=== PATIENT | male | born 1970 | race Caucasian/White ===

== ENCOUNTER 2020-05-11 06:22 | Inpatient (IN) | payer OTHER ==
[~2020-05-11] VITALS: Ht 172 cm; Wt 95.2 kg
--- OUTSIDE RECORDS SUMMARY | 2020-05-11 06:30 | XMS REPORT | Continuity of Care Document ---
Author Organization Unknown Address Unknown Phone Unavailable Allergies There is no data. Medications There is no data. Problems There is no data. Procedures There is no data. Results There is no data. Encounters ACCT No. Visit Date/Time Discharge Status Pt. Type Provider Facility Loc./Unit Complaint [id number] 05/11/2020 06:26:[address] Emergency HOLLY REA, RUBI Hamilton [facility] ER +GLADYS GERMAN
[2020-05-11] MEDS ORDERED: LACTATED RINGERS 1,000 ML IV ONE (06:41)
[2020-05-11] MEDS ORDERED: KETOROLAC 30 MG/ML VIAL ONE (06:48)
[2020-05-11] MEDS ORDERED: KETOROLAC 30 MG/ML VIAL IVP STA (06:50)
[2020-05-11] MEDS ORDERED: LACTATED RINGERS 1,000 ML IV STA (06:50)
--- NOTE | 2020-05-11 07:30 | Diagnostic Imaging Report ---
CLINICAL INDICATION: Patient with shortness of air and Covid positive. EXAM: Portable chest x-ray upright view. COMPARISONS: None. FINDINGS: Lungs/pleura: There is a subtle area of groundglass airspace consolidation overlying the right upper lung field region. There is curvilinear airspace opacity in right lung bases represent atelectasis, but superimposed infiltrate cannot be completely excluded. There is also minimal curvilinear opacities in left lung base which may represent atelectasis. There is no pneumothorax. There is no pleural effusion. Mediastinum: Unremarkable. Pulmonary vasculature: Unremarkable. Heart: Unremarkable. Bones/extrathoracic soft tissue: Unremarkable. IMPRESSION: 1: There is concern for right upper lung field small groundglass opacification concerning for lung infiltrate. Follow up chest x-ray in 2 - 4 weeks is suggested to evaluate for interval resolution of this finding. 2: There is development of mild right basilar atelectasis and/or infiltrate. 3: There is minimal left basilar atelectasis. Dictated by: Dictated on workstation # [id number]
[2020-05-11 07:32] LABS: BASOPHILS % (AUTO) 0 % (0-10); EOSINOPHILS % (AUTO) 0 % (0-10); HEMATOCRIT 44 % (40-54); HEMOGLOBIN 15.5 G/DL (13.3-17.7); LYMPHOCYTES # (AUTO) 1.4 X 10^3 (1.0-4.0); LYMPHOCYTES % (AUTO) 13 % (12-44); MEAN CORPUSCULAR HEMOGLOBIN 33 PG (25-34); MEAN CORPUSCULAR HGB CONC 35 G/DL (32-36); MEAN CORPUSCULAR VOLUME 96 FL (80-99); MONOCYTES # (AUTO) 1.3 X 10^3 (0.0-1.0); MONOCYTES % (AUTO) 12 % (0-12); NEUTROPHILS # (AUTO) 8.2 X 10^3 (1.8-7.8); NEUTROPHILS % (AUTO) 75 % (42-75); PLATELET COUNT 259 10^3/uL (130-400); RED CELL DISTRIBUTION WIDTH 13.6 % (10.0-14.5); WHITE BLOOD COUNT 10.9 10^3/uL (4.3-11.0)
[2020-05-11 07:42] LABS: ALBUMIN 3.6 GM/DL (3.2-4.5); CHLORIDE 103 MMOL/L (98-107); POTASSIUM 3.2 MMOL/L (3.6-5.0); SODIUM 137 MMOL/L (135-145)
[2020-05-11 07:44] LABS: GLUCOSE 131 MG/DL (70-105)
[2020-05-11 07:45] LABS: FIBRIN DEGRADATION PRODUCTS 0.71 UG/ML (0.00-0.49); INR 1.1 (0.8-1.4); PROTHROMBIN TIME PATIENT 14.1 SEC (12.2-14.7)
[2020-05-11 07:46] LABS: BILIRUBIN,TOTAL 0.6 MG/DL (0.1-1.0); CARBON DIOXIDE 23 MMOL/L (21-32)
[2020-05-11 07:48] LABS: ALKALINE PHOSPHATASE 51 U/L (40-136); CREATININE SERUM 1.17 MG/DL (0.60-1.30); GFR ESTIMATED > 60
[2020-05-11 07:49] LABS: BUN/CREATININE RATIO 10
[2020-05-11 07:51] LABS: ALANINE AMINOTRANSFERASE 54 U/L (0-55)
--- NOTE | 2020-05-11 07:52 | ED General ---
General Chief Complaint: Respiratory Problems Stated Complaint: +COVID,AMS Nursing Triage Note: Pt is known COVID positive (tested positive on 05/02-symptom onset on 05/01). Pt had syncopal episode this AM after getting out of shower. reported pt lost control of bowels. Pt alert and oriented upon arrival to ED. Pt c/o generalized weakness, body aches, and chest tightness. Nursing Sepsis Screen: No Definite Risk Source of Information: Patient Exam Limitations: No Limitations History of Present Illness Date Seen by Provider: May 11, 2020 Time Seen by Provider: 06:40 Initial Comments Here with report of syncopal episode this morning after getting out of a hot shower. Apparently he wasn't feeling well at the time. No injuries. Does have complaint of body aches, weakness, chest tightness and mild shortness of air. He is COVID positive from test that was noted on 05/02. He has been doing okay since that time except he has lost taste and smell and he has continuation of his body aches and now with fever. Does not smoke and has no history of lung disease. Denies nausea or vomiting. Feels a little better now but believes that he is likely dehydrated. States he feels like he can't get a full breath. Has been using Tylenol/acetaminophen as needed for pain last dose at 5 AM this morning. Timing/Duration: 1 Week, Getting Worse Severity: Moderate Associated Systoms: No Cough; Fever/Chills, Loss of Appetite; No Nausea/Vomiting; Shortness of Air, Syncope, Weakness Allergies and Home Medications Allergies Coded Allergies: No Known Drug Allergies (Unverified , 05/11/20) Patient Home Medication List Home Medication List Reviewed: Yes Review of Systems Review of Systems Constitutional: see HPI EENTM: see HPI; No throat pain Respiratory: No cough; short of breath; No wheezing Cardiovascular: see HPI, chest pain (tightness) Gastrointestinal: No abdominal pain, No nausea, No vomiting Genitourinary: no symptoms reported Musculoskeletal: joint pain, muscle pain Skin: no symptoms reported Psychiatric/Neurological: No Symptoms Reported All Other Systems Reviewed Negative Unless Noted: Yes Past Kocdnef-Xdjbkn-Vssabe Hx Past Med/Social Hx: Reviewed Nursing Past Med/Soc Hx Patient Social History Alcohol Use: Denies Use Recreational Drug Use: No Smoking Status: Never a Smoker Recent Foreign Travel: No Contact w/Someone Who Travel: No Recent Infectious Disease Expo: No Recent Hopitalizations: No Seasonal Allergies Seasonal Allergies: No Past Medical History Surgeries: No Respiratory: Yes (COVID positive) Cardiac: No Neurological: No Genitourinary: No Gastrointestinal: No Musculoskeletal: No Endocrine: No HEENT: No Cancer: No Psychosocial: No Integumentary: No Adverse Reaction/Blood Tranf: No Family Medical History Reviewed Nursing Family Hx No Pertinent Family Hx Physical Exam-Suspected Sepsis Physical Exam Vital Signs Vital Signs - First Documented 05/11/20 05/11/20 06:38 06:50 Temp 37.3 Pulse 68 Resp 18 B/P (MAP) 135/85 (102) Pulse Ox 92 O2 Delivery Room Air O2 Flow Rate 2.00 Capillary Refill : Less Than 3 Seconds Blood Pressure Mean: 102 Height, Weight, BMI Height: '" Weight: lbs. oz. kg; 32.00 BMI Method: General Appearance: No Apparent Distress, WD/WN HEENT: PERRL/EOMI, TMs Normal, Pharynx Normal Neck: Non Tender, Supple Respiratory: No Respiratory Distress, Crackles (bilateral lateral aspects mid and lower lung) Cardiovascular: Regular Rate, Rhythm, No Murmur Gastrointestinal: Non Tender, Soft Back: Normal Inspection, No Vertebral Tenderness Extremity: Normal Range of Motion, Non Tender Neurologic/Psychiatric: Alert, Oriented x3 Skin: normal color, warm/dry Focused Exam Lactate Level 05/11/20 06:53: Lactic Acid Level 1.34 Lactic Acid Level Laboratory Tests Test 05/11/20 06:53 Lactic Acid Level 1.34 MMOL/L (0.50-2.00) Progress/Results/Core Measures Suspected Sepsis Recent Fever Within 48 Hours: No Infection Criteria Present: Documented Infection New/Unexplained Altered Menta: No Sepsis Screen: No Definite Risk SIRS Temperature: Pulse: 68 Respiratory Rate: 18 Laboratory Tests 05/11/20 06:55: White Blood Count 10.9 Blood Pressure 135 /85 Mean: 102 05/11/20 06:53: Lactic Acid Level 1.34 Laboratory Tests 05/11/20 06:55: INR Comment 1.1, Platelet Count 259 Results/Orders Lab Results Laboratory Tests Test 05/11/20 06:53 05/11/20 06:55 Range/Units Lactic Acid Level 1.34 0.50-2.00 MMOL/L White Blood Count 10.9 4.3-11.0 10^3/uL Red Blood Count 4.64 4.35-5.85 10^6/uL Hemoglobin 15.5 13.3-17.7 G/DL Hematocrit 44 40-54 % Mean Corpuscular Volume 96 80-99 FL Mean Corpuscular Hemoglobin 33 25-34 PG Mean Corpuscular Hemoglobin Concent 35 32-36 G/DL Red Cell Distribution Width 13.6 10.0-14.5 % Platelet Count 259 130-400 10^3/uL Mean Platelet Volume 10.0 7.4-10.4 FL Neutrophils (%) (Auto) 75 42-75 % Lymphocytes (%) (Auto) 13 12-44 % Monocytes (%) (Auto) 12 0-12 % Eosinophils (%) (Auto) 0 0-10 % Basophils (%) (Auto) 0 0-10 % Neutrophils # (Auto) 8.2 H 1.8-7.8 X 10^3 Lymphocytes # (Auto) 1.4 1.0-4.0 X 10^3 Monocytes # (Auto) 1.3 H 0.0-1.0 X 10^3 Eosinophils # (Auto) 0.0 0.0-0.3 10^3/uL Basophils # (Auto) 0.0 0.0-0.1 10^3/uL Prothrombin Time 14.1 12.2-14.7 SEC INR Comment 1.1 0.8-1.4 Activated Partial Thromboplast Time 31 24-35 SEC D-Dimer 0.71 H 0.00-0.49 UG/ML Sodium Level 137 135-145 MMOL/L Potassium Level 3.2 L 3.6-5.0 MMOL/L Chloride Level 103 98-107 MMOL/L Glucose Level 131 H 70-105 MG/DL Calcium Level 8.0 L 8.5-10.1 MG/DL Corrected Calcium 8.3 L 8.5-10.1 MG/DL Total Protein 6.0 L 6.4-8.2 GM/DL Albumin 3.6 3.2-4.5 GM/DL My Orders Orders - RUBI BARRERA MD Lactated Ringers (Lr 1000 Ml Iv Solution (05/11/20 06:41) Ketorolac Injection (Toradol Injection) (05/11/20 06:48) Cbc With Automated Diff (05/11/20 06:50) Comprehensive Metabolic Panel (05/11/20 06:50) Blood Culture (05/11/20 06:50) Sputum Culture (05/11/20 06:50) Urinalysis (05/11/20 06:50) Urine Culture (05/11/20 06:50) Protime With Inr (05/11/20 06:50) Partial Thromboplastin Time (05/11/20 06:50) Chest 1 View, Ap/Pa Only (05/11/20 06:50) Ed Iv/Invasive Line Start (05/11/20 06:50) Vital Signs Adult Sepsis Patie Q15M (05/11/20 06:50) O2 (05/11/20 06:50) Remove Rings In Anticipation O (05/11/20 06:50) Lactic Acid Analyzer (05/11/20 06:50) Fibrin Degradation Products (05/11/20 06:50) Procalcitonin (Pct) (05/11/20 06:50) Hs C Reactive Protein (05/11/20 06:50) Covid-19 External Lab Results (05/11/20 06:50) Lactated Ringers (Lr 1000 Ml Iv Solution (05/11/20 06:50) Ketorolac Injection (Toradol Injection) (05/11/20 06:50) Vital Signs/I&O 05/11/20 05/11/20 06:38 06:50 Temp 37.3 Pulse 68 Resp 18 B/P (MAP) 135/85 (102) Pulse Ox 92 92 O2 Delivery Room Air Nasal Cannula O2 Flow Rate 2.00 Capillary Refill : Less Than 3 Seconds Blood Pressure Mean: 102 Progress Note : Progress Note Seen and evaluated. Patient is COVID 19 positive and I believe he is having the sequela related to that including likely lung infiltrates from the viral disease due to his shortness of breath and physical exam findings. O2 saturations 90-93% on room air and only improved to 94% with deep breathing. He is not a smoker and not wear oxygen. We will go ahead and get IV, labs, chest x-ray, blood cultures and lactic acid. LR 1 L bolus, Toradol 30 mg IV. O2 at 2 L via nasal cannula initiated. Monitor patient. Anticipate admission. 0800: I discussed the case with Dr. Chaudhry given the x-ray findings. Both agree that is indicated. Patient will be admitted inpatient status. Findings all related to COVID-19 currently. No indication of sepsis currently. Findings and concerns discussed with the daphney ent who agrees with the plan. Doing better on oxygen currently and feeling a little better after meds and fluids. Diagnostic Imaging Diagonstic Imaging: Xray Plain Films/CT/US/NM/MRI: chest Comments [facility] [place] NAME: DAI PHAN [facility] REC#: [id number] PT STATUS: REG ER : 1970 PHYSICIAN: RUBI BARRERA MD ADMIT DATE: 05/11/20/ER Draft Date of Exam:05/11/20 CHEST 1 VIEW, AP/PA ONLY CLINICAL INDICATION: Patient with shortness of air and Covid positive. EXAM: Portable chest x-ray upright view. COMPARISONS: None. FINDINGS: Lungs/pleura: There is a subtle area of groundglass airspace consolidation overlying the right upper lung field region. There is curvilinear airspace opacity in right lung bases represent atelectasis, but superimposed infiltrate cannot be completely excluded. There is also minimal curvilinear opacities in left lung base which may represent atelectasis. There is no pneumothorax. There is no pleural effusion. Mediastinum: Unremarkable. Pulmonary vasculature: Unremarkable. Heart: Unremarkable. Bones/extrathoracic soft tissue: Unremarkable. IMPRESSION: 1: There is concern for right upper lung field small groundglass opacification concerning for lung infiltrate. Follow up chest x-ray in 2 - 4 weeks is suggested to evaluate for interval resolution of this finding. 2: There is development of mild right basilar atelectasis and/or infiltrate. 3: There is minimal left basilar atelectasis. Dictated on workstation # [id number] Dict: 05/11/20719 Trans: 05/11/20728 [id number] Interpreted by: ANGE DALTON MD Electronically signed by: Reviewed: Reviewed by Me Departure Communication (Admissions) Time/Spoke to Admitting Phy: 08:00 Impression Primary Impression: Coronavirus infection Additional Impression: Bilateral pneumonia Qualified Codes: J18.9 - Pneumonia, unspecified organism Disposition: ADMITTED INPATIENT Condition: Stable Admissions Decision to Admit Reason: Admit from ER (General) Decision to Admit/Date: May 11, 2020 Time/Decision to Admit Time: 08:00 RUBI BARRERA MD May 11, 2020 07:51
--- OUTSIDE RECORDS SUMMARY | 2020-05-11 08:30 | XMS REPORT | Continuity of Care Document ---
Author Organization Unknown Address Unknown Phone Unavailable Allergies Active Description Code Type Severity Reaction Onset Reported/Identified Relationship to Patient Clinical Status Yes No Known Drug Allergies [id number] Drug Allergy Unknown N/A 05/11/2020 Medications There is no data. Problems There is no data. Procedures There is no data. Results Test Result Range Blood lactic acid measurement (moles/vol ume) - 05/11/20 06:53 Blood lactic acid measurement (moles/volume) 1.34 mmol/L 0.50-2.00 Complete blood count (CBC) with automate d white blood cell (WBC) differential - 05/11/20 06:55 Blood leukocytes automated count (number/volume) 10.9 10*3/uL 4.3-11.0 Blood erythrocytes automated count (number/volume) 4.64 10*6/uL 4.35-5.85 Venous blood hemoglobin measurement (mass/volume) 15.5 g/dL 13.3-17.7 Blood hematocrit (volume fraction) 44 % 40-54 Automated erythrocyte mean corpuscular volume 96 [ foz_us] 80-99 Automated erythrocyte mean corpuscular h emoglobin (mass per erythrocyte) 33 pg 25-34 Automated erythrocyte mean corpuscular h emoglobin concentration measurement (mass/volume) 35 g/dL 32-36 Automated erythrocyte distribution width ratio 13. 6 % 10.0- 14.5 Automated blood platelet count (count/volume) 259 10*3/uL 130-400 Automated blood platelet mean volume measurement 10.0 [foz_us] 7.4-10.4 Automated blood neutrophils/100 leukocytes 75 % 42-75 Automated blood lymphocytes/100 leukocytes 13 % 12-44 Blood monocytes/100 leukocytes 12 % 0-12 Automated blood eosinophils/100 leukocytes 0 % 0-10 Automated blood basophils/100 leukocytes 0 % 0-10 Blood neutrophils automated count (number/volume) 8.2 10*3 1.8-7.8 Blood lymphocytes automated count (number/volume) 1.4 10*3 1.0-4.0 Blood monocytes automated count (number/volume) 1. 3 10*3 0.0-1.0 Automated eosinophil count 0.0 10*3/uL 0 .0-0.3 Automated blood basophil count (count/volume) 0.0 10*3/uL 0.0-0.1 Comprehensive metabolic panel - 05/11/20 06:55 Serum or plasma sodium measurement (moles/volume) 137 mmol/L 135-145 Serum or plasma potassium measurement (moles/volume) 3.2 mmol/L 3.6-5.0 Serum or plasma chloride measurement (moles/volume) 103 mmol/L 98-107 Carbon dioxide 23 mmol/L 21-32 Serum or plasma anion gap determination (moles/volume) 11 mmol/L 5-14 Serum or plasma urea nitrogen measurement (mass/volume ) 12 mg/dL 7-18 Serum or plasma creatinine measurement (mass/volume) 1.17 mg/dL 0.60-1.30 Serum or plasma urea nitrogen/creatinine mass ratio 10 NRG Serum or plasma creatinine measurement w ith calculation of estimated glomerular filtration rate > NRG Serum or plasma glucose measurement (mass/volume) 131 mg/dL 70-105 Serum or plasma calcium measurement (mass/volume) 8.0 mg/dL 8.5-10.1 Serum or plasma total bilirubin measurement (mass/volu me) 0.6 mg/dL 0.1-1.0 Serum or plasma alkaline phosphatase ammy surement (enzymatic activity/volume) 51 U/L 40-136 Serum or plasma aspartate aminotransfera se measurement (enzymatic activity/volume) 18 U/L 5-34 Serum or plasma alanine aminotransferase measurement (enzymatic activity/volume) 54 U/L 0-55 Serum or plasma protein measurement (mass/volume) 6.0 g/dL 6.4-8.2 Serum or plasma albumin measurement (mass/volume) 3.6 g/dL 3.2-4.5 CALCIUM CORRECTED 8.3 mg/dL 8.5-10.1 PT panel in platelet poor plasma by coag ulation assay - 05/11/20 06:55 Prothrombin time (PT) in platelet poor plasma by coagu lation assay 14.1 s 12.2-14.7 INR in platelet poor plasma or blood by coagulation as say 1.1 0.8-1.4 Activated partial thromboplastin time (a PTT) in platelet poor plasma bycoagulation assay - 05/11/20 06:55 Activated partial thromboplastin time (a PTT) in platelet poor plasma bycoagulation assay 31 s 24-35 Fibrin D-dimer FEU measurement in platel et poor plasma (mass/volume) - 05/11/20 06:55 Fibrin D-dimer FEU measurement in platelet poor plasma (mass/volume) 0.71 ug/mL 0.00-0.49 PROCALCITONIN (PCT) - 05/11/20 06:55 PROCALCITONIN (PCT) 0.13 ng/mL <0.10 Serum or plasma C reactive protein measu rement (mass/volume) - 05/11/20 06:55 Serum or plasma C reactive protein measurement (mass/v olume) 5.47 mg/dL 0.00-0.50 Encounters ACCT No. Visit Date/Time Discharge Status Pt. Type Provider Facility Loc./Unit Complaint [id number] 05/11/2020 08:20:[address] Inpatient FACUNDO REA, BALTAZAR Isaac [facility] 4TH +COVID;PNEUMONIA BILAT
[2020-05-11 09:30] VITALS: BP 135/85
[2020-05-11 09:37] VITALS: BP 128/79
[2020-05-11 09:49] VITALS: BP 128/79
--- NOTE | 2020-05-11 10:00 | NUR ---
DAI PHAN admitted to room 431-1, with an admitting diagnosis of sob, on 05/11/20 from ED via wheel chair, accompanied by staff .DAI PHAN introduced to surroundings, call light, bed controls, phone, TV, temperature control, lights, meal times, smoking policy, visitor policy, side rail policy, bathrooms and showers. Patient Rights given to patient in the handbook. DAI PHAN verbalizes understanding that [facility] is not responsible for the loss or damage to any personal effects or valuables that are kept in the patients posession during their hospitalization. The following Patient Care Plans and discharge were discussed with the patient. DAI PHAN verbalizes understanding of Interdisciplinary Patient Education. Patient informed about the Rapid Response Team and its purpose.
[2020-05-11] MEDS ORDERED: ONDANSETRON 4 MG/2 ML (SDV) Z0FRAN IV PRN ×2 (10:15→12:45)
[2020-05-11] MEDS ORDERED: ACETAMINOPHEN 500 MG TAB (TYLENOL) PO PRN (10:15)
[2020-05-11] MEDS ORDERED: NS IV 1000 ML 1,000 ML ONE (10:24)
[2020-05-11] MEDS: LACTATED RINGERS 1,000 ML IV SCH ×2 (10:33→20:51)
[2020-05-11] MEDS: LOSARTAN 50 MG (COZAAR) TAB PO SCH (10:35)
--- NOTE | 2020-05-11 12:37 | History & Physical-Hospitalist ---
History of Present Illness HPI/Chief Complaint Andrés Houston is a 49-year-old male who presented following a syncopal episode. He was diagnosed with COVID-19 on 05/02. He has been isolating at home since that time. He reports that he has been eating well but possibly not drinking as much physician. He reports that after her shower this morning he ended up on the floor. He is unsure how he fell. He just remembers waking up on the floor. He denies any fevers or chills. He denies any shortness of breath or cough. He reports when he was diagnosed his only symptom was chest tightness. He denies any chest pain. He denies any nausea or vomiting. Denies any abdominal pain. Has no other complaints or concerns. Source: patient Exam Limitations: no limitations Date Seen 05/11/20 Time Seen by a Provider: 10:10 Attending Physician Tiny Loredo MD PCP Unknown Referring Physician Date of Admission May 11, 2020 at 08:20 Home Medications & Allergies Home Medications Reviewed patient Home Medication Reconciliation performed by pharmacy medication reconciliations watch repair technician and/or nursing. Patients Allergies have been reviewed. Allergies Allergies Coded Allergies No Known Drug Allergies (Unverified05/11/20) Past Qpwnwbe-Hipiho-Pmawvg Hx Past Med/Social Hx: Reviewed Nursing Past Med/Soc Hx Patient Social History Alcohol Use: Denies Use Recreational Drug Use: No Smoking Status: Never a Smoker Physical Abuse Screen: No Sexual Abuse: No Recent Foreign Travel: No Contact w/other who traveled: No Recent Hopitalizations: No Recent Infectious Disease Expo: No Immunizations Up To Date Pediatric: No Seasonal Allergies Seasonal Allergies: Yes Past Medical History Currently Using CPAP: No Currently Using BIPAP: No Genitourinary: Kidney Stones Are Your Blood Sugars Over 250: No History of Blood Disorders: No Adverse Reaction to Blood Albarado: No Family History Reviewed Nursing Family Hx Diabetes mellitus 19 FATHER Hypercholesterolemia 19 FATHER Hypertension 19 FATHER 19 MOTHER No Pertinent Family Hx Review of Systems Constitutional: dizziness EENTM: no symptoms reported Respiratory: no symptoms reported Cardiovascular: no symptoms reported Gastrointestinal: no symptoms reported Genitourinary: no symptoms reported Musculoskeletal: no symptoms reported Skin: no symptoms reported Psychiatric/Neurological: No Symptoms Reported Physical Exam Physical Exam Vital Signs Vital Signs - First Documented 05/11/20 05/11/20 05/11/20 06:38 06:50 09:30 Temp 37.3 Pulse 68 Resp 18 B/P (MAP) 135/85 (102) Pulse Ox 92 O2 Delivery Room Air O2 Flow Rate 2.00 FiO2 21 Capillary Refill : Less Than 3 Seconds Height, Weight, BMI Height: '" Weight: lbs. oz. kg; 32.17 BMI Method: General Appearance: No Apparent Distress, WD/WN HEENT: PERRL/EOMI, Pharynx Normal Neck: Normal Inspection, Supple Respiratory: Lungs Clear, Normal Breath Sounds, No Respiratory Distress Cardiovascular: Regular Rate, Rhythm, No Edema, No Murmur Gastrointestinal: Normal Bowel Sounds, Non Tender, Soft Extremity: Normal Inspection, Non Tender, No Pedal Edema Neurologic/Psychiatric: Alert, Oriented x3, No Motor/Sensory Deficits, Normal Mood/Affect Skin: Normal Color, Warm/Dry Results Results/Procedures Labs Laboratory Tests 05/11/20 06:55 Patient resulted labs reviewed. Imaging: Reviewed Imaging Report Assessment/Plan Admission Diagnosis Syncope Admission Status: Inpatient Order (span 2 midnights) Reason for Inpatient Admission: COVID-19 Assessment and Plan Syncope Dehydration COVID-19 Acute respiratory failure with hypoxia Likely due to orthostatic hypotension Clinically appears dehydrated Creatinine 1.17, unknown baseline Received fluid bolus in the emergency room Continue maintenance fluids Chest x-ray with bilateral infiltrates Procalcitonin 0.13, antibiotics discouraged Obtain water mangle tender on telemetry Oxygen supplementation as needed Essential hypertension Continue losartan DVT prophylaxis: Lovenox Diagnosis/Problems Diagnosis/Problems (1) COVID-19 Status: Acute (2) Acute respiratory failure with hypoxia Status: Acute (3) Syncope Status: Acute (4) Bilateral pneumonia Status: Acute Qualifiers: Pneumonia type: due to unspecified organism Lung location: unspecified part of lung Qualified Codes: J18.9 - Pneumonia, unspecified organism TINY LOREDO MD May 11, 2020 12:37
[2020-05-11] MEDS ORDERED: ENOXAPARIN 40 MG/0.4 ML (LOVENOX) SYR SC SCH (12:45)
[2020-05-11] MEDS ORDERED: diphenhydrAMINE 25 MG TAB (BENADRYL) PO PRN (12:45)
[2020-05-11] MEDS ORDERED: ONDANSETRON 4 MG (ZOFRAN) ORAL DISSOLVE TAB PO PRN (12:45)
[2020-05-11] MEDS ORDERED: ANTACID SUSP 30 ML UDC (MYLANTA) PO PRN (12:45)
[2020-05-11] MEDS ORDERED: MELATONIN 3 MG TABLET PO PRN (12:45)
[2020-05-11] MEDS ORDERED: polyethylene glycoL POWDER 17 GM (MIRALAX) PACK PO PRN (12:45)
[2020-05-11] MEDS ORDERED: BISACODYL 10 MG SUPP (DULCOLAX) PR PRN (12:45)
[2020-05-11] MEDS: RT-ALBUTEROL INHALER HFA (VENTOLIN HFA) 18 GM IH SCH (14:08)
[2020-05-11 16:40] VITALS: BP 175/90
[2020-05-11] MEDS: ACETAMINOPHEN 325 MG TABLET PO PRN ×2 (17:38→21:00)
[2020-05-11] MEDS: RT-ALBUTEROL INHALER HFA (VENTOLIN HFA) 18 GM IH PRN (20:24)
[2020-05-11] MEDS: DOCUSATE SODIUM 100 MG (COLACE) CAP PO SCH (20:51)
[2020-05-11] MEDS: SENNOSIDES 8.6 MG (SENOKOT) TAB PO SCH (20:51)
[2020-05-11 20:52] VITALS: BP 130/65
[2020-05-12 00:09] VITALS: BP 129/69
[2020-05-12] MEDS: RT-ALBUTEROL INHALER HFA (VENTOLIN HFA) 18 GM IH PRN ×2 (02:33→08:05)
[2020-05-12 04:57] VITALS: BP 151/79
[2020-05-12] MEDS: LACTATED RINGERS 1,000 ML IV SCH (05:01)
[2020-05-12] MEDS: ACETAMINOPHEN 325 MG TABLET PO PRN (05:01)
[2020-05-12 05:52] LABS: BASOPHILS % (AUTO) 0 % (0-10); EOSINOPHILS % (AUTO) 1 % (0-10); HEMATOCRIT 40 % (40-54); HEMOGLOBIN 13.9 G/DL (13.3-17.7); LYMPHOCYTES # (AUTO) 1.4 X 10^3 (1.0-4.0); LYMPHOCYTES % (AUTO) 17 % (12-44); MEAN CORPUSCULAR HEMOGLOBIN 34 PG (25-34); MEAN CORPUSCULAR HGB CONC 35 G/DL (32-36); MEAN CORPUSCULAR VOLUME 97 FL (80-99); MEAN PLATELET VOLUME 10.3 FL (7.4-10.4); MONOCYTES # (AUTO) 1.1 X 10^3 (0.0-1.0); MONOCYTES % (AUTO) 13 % (0-12); NEUTROPHILS # (AUTO) 5.9 X 10^3 (1.8-7.8); NEUTROPHILS % (AUTO) 70 % (42-75); PLATELET COUNT 227 10^3/uL (130-400); RED CELL DISTRIBUTION WIDTH 13.3 % (10.0-14.5); WHITE BLOOD COUNT 8.4 10^3/uL (4.3-11.0)
[2020-05-12 05:57] LABS: ALBUMIN 3.3 GM/DL (3.2-4.5); CHLORIDE 102 MMOL/L (98-107); POTASSIUM 3.8 MMOL/L (3.6-5.0); SODIUM 134 MMOL/L (135-145)
[2020-05-12 05:58] LABS: CALCIUM 8.1 MG/DL (8.5-10.1)
[2020-05-12 05:59] LABS: GLUCOSE 94 MG/DL (70-105); TOTAL PROTEIN 5.6 GM/DL (6.4-8.2)
[2020-05-12 06:00] LABS: CARBON DIOXIDE 23 MMOL/L (21-32)
[2020-05-12 06:01] LABS: BILIRUBIN,TOTAL 0.6 MG/DL (0.1-1.0)
[2020-05-12 06:03] LABS: ALKALINE PHOSPHATASE 41 U/L (40-136); CREATININE SERUM 0.99 MG/DL (0.60-1.30); GFR ESTIMATED > 60
[2020-05-12 06:04] LABS: BUN/CREATININE RATIO 12
[2020-05-12 06:06] LABS: ALANINE AMINOTRANSFERASE 48 U/L (0-55)
[2020-05-12 08:00] VITALS: BP 142/80
[2020-05-12] MEDS: RT-ALBUTEROL INHALER HFA (VENTOLIN HFA) 18 GM IH SCH (08:05)
[2020-05-12] MEDS: LOSARTAN 50 MG (COZAAR) TAB PO SCH (08:54)
[2020-05-12] MEDS: SENNOSIDES 8.6 MG (SENOKOT) TAB PO SCH (08:54)
[2020-05-12] MEDS: DOCUSATE SODIUM 100 MG (COLACE) CAP PO SCH (08:54)
[2020-05-12 08:55] VITALS: BP 142/80
--- NOTE | 2020-05-12 13:27 | Discharge Summary ---
Discharge Summary Hospital Course Was the Problem List Reviewed?: Yes Problems/Dx: (1) COVID-19 Status: Acute (2) Acute respiratory failure with hypoxia Status: Resolved (3) Syncope Status: Resolved (4) Bilateral pneumonia Status: Acute Qualifiers: Qualified Codes: J18.9 - Pneumonia, unspecified organism Hospital Course Date of Admission: May 11, 2020 at 08:20 Admission Diagnosis : Acute respiratory failure with hypoxia due to COVID-19 Family Physician/Provider: Date of Discharge: 05/12/20 Discharge Diagnosis: Acute respiratory failure with hypoxia due to COVID-19 Hospital Course: Andrés Houston is a 49-year-old male who was admitted with acute hypoxic respiratory failure due to COVID-19. He tested positive as an outpatient on 05/02 after his symptoms began on 05/01. After admission, he was initially requiring a small amount of supplemental oxygen. He was quickly titrated off of this. He underwent a home oxygen study but his saturations remained above 95 percent on room air. He had a syncopal episode at home which was thought to be due to dehydration. He was given IV fluids and responded well. He did have a fever on the morning of 05/12 and so he was recommended to continue isolation at home for coronavirus. He should follow-up with his primary care physician in 1- 2 weeks. The health department should be in contact with him regarding when he can come out of isolation. Labs and Pending Lab Test: Laboratory Tests 05/12/20 05:08: White Blood Count 8.4, Red Blood Count 4.12L, Hemoglobin 13.9, Hematocrit 40, Mean Corpuscular Volume 97, Mean Corpuscular Hemoglobin 34, Mean Corpuscular Hemoglobin Concent 35, Red Cell Distribution Width 13.3, Platelet Count 227, Mean Platelet Volume 10.3, Neutrophils (%) (Auto) 70, Lymphocytes (%) (Auto) 17, Monocytes (%) (Auto) 13H, Eosinophils (%) (Auto) 1, Basophils (%) (Auto) 0, Neutrophils # (Auto) 5.9, Lymphocytes # (Auto) 1.4, Monocytes # (Auto) 1.1H, Eosinophils # (Auto) 0.0, Basophils # (Auto) 0.0, Sodium Level 134L, Potassium Level 3.8, Chloride Level 102, Carbon Dioxide Level 23, Anion Gap 9, Blood Urea Nitrogen 12, Creatinine 0.99, Estimat Glomerular Filtration Rate > 60, BUN/Creatinine Ratio 12, Glucose Level 94, Calcium Level 8.1L, Corrected Calcium 8.7, Total Bilirubin 0.6, Aspartate Amino Transf (AST/SGOT) 22, Alanine Aminotransferase (ALT/SGPT) 48, Alkaline Phosphatase 41, Total Protein 5.6L, Albumin 3.3 Home Meds Active No Active Prescriptions or Reported Medications Assessment/Pt Instructions Medications as prescribed. Follow up the primary care physician in about 1-2 weeks. Discharge Planning: <30 minutes discharge planning Discharge Instructions Discharge Diet: No Restrictions Activity as Tolerated: Yes Pneumonia Vaccine Order Indica: Yes Discharge Physical Examination Vital Signs Vital Signs Date Time Temp Pulse Resp B/P (MAP) Pulse Ox O2 Delivery O2 Flow Rate FiO2 05/12/20 08:55 142/80 (100) 05/12/20 08:05 Room Air 05/12/20 08:00 36.9 69 20 96 05/11/20 14:08 2.00 05/11/20 09:30 21 General Appearance: No Apparent Distress, WD/WN HEENT: PERRL/EOMI, Pharynx Normal Respiratory: Lungs Clear, Normal Breath Sounds, No Respiratory Distress Cardiovascular: Regular Rate, Rhythm, No Edema, No Murmur Gastrointestinal: Normal Bowel Sounds, Non Tender, Soft Extremity: Normal Inspection, Non Tender, No Pedal Edema Skin: Normal Color, Warm/Dry Neurologic/Psychiatric: Alert, Oriented x3, No Motor/Sensory Deficits, Normal Mood/Affect Allergies: Coded Allergies: No Known Drug Allergies (Unverified , 05/11/20) Copy Copies To 1: AYSE OZUNA DO Discharge Summary Date of Admission May 11, 2020 at 08:20 Date of Discharge Discharge Date: May 12, 2020 Discharge Time: 10:45 Admission Diagnosis Acute hypoxic respiratory failure due to COVID-19 Discharge Diagnosis Syncope Dehydration COVID-19 Acute respiratory failure with hypoxia (1) COVID-19 Status: Acute (2) Acute respiratory failure with hypoxia Status: Resolved (3) Syncope Status: Resolved (4) Bilateral pneumonia Status: Acute Qualifiers: Qualified Codes: J18.9 - Pneumonia, unspecified organism Clinical Quality Measures DVT/VTE Risk/Contraindication: Risk Factor Score Per Nursin RFS Level Per Nursing on Admit: 2=Moderate BALTAZAR LOREDO MD May 12, 2020 13:26
== END 2020-05-12 13:00 | disposition home or self-care (01) | DRG 177 ==
LOC: EDUNIT# 06:22 → ER 06:26 → 4TH 08:20
PROVIDERS: ADMIT Internal Medicine; ATTEND Internal Medicine
DX: U07.1 COVID-19 (principal); J12.89 Other viral pneumonia; J96.01 Acute respiratory failure with hypoxia; E86.0 Dehydration; I95.1 Orthostatic hypotension
CPT/HCPCS: 36415; 71045; 80053; 83605; 84145; 85025; 85379; 85610; 85730; 86141; 87040; 94640; 94760; 96374

== ENCOUNTER 2021-06-10 20:52 | Emergency (ER) | payer OTHER ==
[2021-06-10] MEDS ORDERED: KETOROLAC 30 MG/ML VIAL IVP ONE (21:30)
[2021-06-10] MEDS ORDERED: ONDANSETRON 4 MG/2 ML (SDV) Z0FRAN IVP ONE (21:30)
[2021-06-10] MEDS ORDERED: LACTATED RINGERS 1,000 ML IV SCH (21:30)
--- NOTE | 2021-06-10 21:44 | ED Abdominal Pain ---
General Chief Complaint: Abdominal/GI Problems Stated Complaint: STOMACH PAIN, SIDE PAIN Source of Information: Patient Exam Limitations: No Limitations History of Present Illness Date Seen by Provider: Jun 10, 2021 Time Seen by Provider: 21:42 Initial Comments To ER with c/o right flank pain sudden onset 4 hours ago today. Hx kidney stones and this is typical for his stone presentation and he thinks he has another. Just started vomiting in waiting room. No fevers or chills. Timing/Duration: 1-2 Days Severity/Quality: Moderate Location: Generalized Abdomen Radiation: No Radiation Activities at Onset: None Associated Symptoms: Nausea/Vomiting Allergies and Home Medications Allergies Coded Allergies: No Known Drug Allergies (Unverified , 05/11/20) Home Medications No Active Prescriptions or Reported Meds Patient Home Medication List Home Medication List Reviewed: Yes Review of Systems Review of Systems Constitutional: see HPI EENTM: No Symptoms Reported Respiratory: No Symptoms Reported Cardiovascular: No Symptoms Reported Gastrointestinal: See HPI, Abdominal Pain Genitourinary: No Symptoms Reported Musculoskeletal: no symptoms reported Skin: no symptoms reported Psychiatric/Neurological: No Symptoms Reported Endocrine: No Symptoms Reported Hematologic/Lymphatic: No Symptoms Reported Past Gjfhury-Qqmkzp-Pmkvdd Hx Immunizations Up To Date PED Vaccines UTD: No Seasonal Allergies Seasonal Allergies: Yes Past Medical History Surgeries: Yes Respiratory: Yes (COVID positive) Pneumonia Currently Using CPAP: No Currently Using BIPAP: No Cardiac: No Neurological: Yes Genitourinary: Yes Kidney Stones Gastrointestinal: No Musculoskeletal: No Endocrine: No HEENT: No Cancer: No Psychosocial: No Integumentary: No Blood Disorders: No Adverse Reaction/Blood Tranf: No Family Medical History Diabetes mellitus 19 FATHER Hypercholesterolemia 19 FATHER Hypertension 19 FATHER 19 MOTHER No Pertinent Family Hx Physical Exam Vital Signs Vital Signs - First Documented 06/10/21 21:32 Temp 36.5 Pulse 77 Resp 16 B/P (MAP) 174/93 (120) Pulse Ox 96 O2 Delivery Room Air Capillary Refill : Height/Weight/BMI Height: '" Weight: lbs. oz. kg; 32.17 BMI Method: General Appearance: WD/WN, mild distress, moderate distress HEENT: PERRL/EOMI, normal ENT inspection Neck: non-tender, full range of motion Respiratory: no respiratory distress, no accessory muscle use Gastrointestinal: normal bowel sounds, non tender, soft Extremities: normal range of motion, non-tender Neurologic/Psychiatric: alert, normal mood/affect, oriented x 3 Skin: normal color, warm/dry Progress/Results/Core Measures Results/Orders Lab Results Laboratory Tests Test 06/10/21 21:38 06/10/21 21:42 Range/Units White Blood Count 11.6 H 4.3-11.0 10^3/uL Red Blood Count 4.85 4.30-5.52 10^6/uL Hemoglobin 16.2 13.3-17.7 g/dL Hematocrit 49 40-54 % Mean Corpuscular Volume 100 H 80-99 fL Mean Corpuscular Hemoglobin 33 25-34 pg Mean Corpuscular Hemoglobin Concent 33 32-36 g/dL Red Cell Distribution Width 13.1 10.0-14.5 % Platelet Count 327 130-400 10^3/uL Mean Platelet Volume 10.1 9.0-12.2 fL Immature Granulocyte % (Auto) 0 % Neutrophils (%) (Auto) 62 42-75 % Lymphocytes (%) (Auto) 28 12-44 % Monocytes (%) (Auto) 7 0-12 % Eosinophils (%) (Auto) 3 0-10 % Basophils (%) (Auto) 1 0-10 % Neutrophils # (Auto) 7.1 1.8-7.8 10^3/uL Lymphocytes # (Auto) 3.3 1.0-4.0 10^3/uL Monocytes # (Auto) 0.8 0.0-1.0 10^3/uL Eosinophils # (Auto) 0.3 0.0-0.3 10^3/uL Basophils # (Auto) 0.1 0.0-0.1 10^3/uL Immature Granulocyte # (Auto) 0.1 0.0-0.1 10^3/uL Sodium Level 139 135-145 MMOL/L Potassium Level 4.1 3.6-5.0 MMOL/L Chloride Level 103 98-107 MMOL/L Carbon Dioxide Level 23 21-32 MMOL/L Anion Gap 13 5-14 MMOL/L Blood Urea Nitrogen 15 7-18 MG/DL Creatinine 1.53 H 0.60-1.30 MG/DL Estimat Glomerular Filtration Rate 48 BUN/Creatinine Ratio 10 Glucose Level 124 H 70-105 MG/DL Calcium Level 9.5 8.5-10.1 MG/DL Corrected Calcium 9.1 8.5-10.1 MG/DL Total Bilirubin 0.6 0.1-1.0 MG/DL Aspartate Amino Transf (AST/SGOT) 26 5-34 U/L Alanine Aminotransferase (ALT/SGPT) 46 0-55 U/L Alkaline Phosphatase 60 40-136 U/L Total Protein 7.4 6.4-8.2 GM/DL Albumin 4.5 3.2-4.5 GM/DL Urine Color YELLOW Urine Clarity CLEAR Urine pH 5.5 5-9 Urine Specific [place] >=1.030 1.016-1.022 Urine Protein NEGATIVE NEGATIVE Urine Glucose (UA) NEGATIVE NEGATIVE Urine Ketones NEGATIVE NEGATIVE Urine Nitrite NEGATIVE NEGATIVE Urine Bilirubin NEGATIVE NEGATIVE Urine Urobilinogen 0.2 < = 1.0 MG/DL Urine Leukocyte Esterase NEGATIVE NEGATIVE Urine RBC (Auto) NEGATIVE NEGATIVE Urine RBC NONE /HPF Urine WBC 0-2 /HPF Urine Crystals PRESENT H /LPF Urine Amorphous Sediment RARE STANLEY URATES H /LPF Urine Bacteria TRACE /HPF Urine Casts NONE /LPF Urine Mucus SMALL H /LPF Urine Culture Indicated NO My Orders Orders - SABA MATHEWS [employer] Cbc With Automated Diff (06/10/21 21:28) Comprehensive Metabolic Panel (06/10/21 21:28) Ua Culture If Indicated (06/10/21 21:28) Ed Iv/Invasive Line Start (06/10/21 21:28) Ketorolac Injection (Toradol Injection) (06/10/21 21:30) Ondansetron Injection (Zofran Injectio (06/10/21 21:30) Lactated Ringers (Lr 1000 Ml Iv Solution (06/10/21 21:30) Ct Abd/Pelvis Wo(Kidney Stone) (06/10/21 21:40) Abdomen/Kub 1view (06/10/21 21:40) Rx-Hydrocodone/Apap 5-325 Mg (Rx-Vicodin (06/10/21 21:45) Fentanyl Inj (Sublimaze Injection) (06/10/21 22:15) Medications Given in ED Current Medications Medications Dose Ordered Sig/Basilia Route Start Time Stop Time Status Last Admin Dose Admin Acetaminophen/ Hydrocodone Bitart 1 ea Q4H PRN PO 06/10/21 21:45 06/10/21 22:01 1 EA Fentanyl Citrate 50 mcg ONCE ONCE IVP 06/10/21 22:15 06/10/21 22:16 DC 06/10/21 22:13 50 MCG Ketorolac Tromethamine 15 mg ONCE ONCE IVP 06/10/21 21:30 06/10/21 21:31 DC 06/10/21 21:58 15 MG Ondansetron HCl 8 mg ONCE ONCE IVP 06/10/21 21:30 06/10/21 21:31 DC 06/10/21 22:00 8 MG Vital Signs/I&O 06/10/21 21:32 Temp 36.5 Pulse 77 Resp 16 B/P (MAP) 174/93 (120) Pulse Ox 96 O2 Delivery Room Air Departure Impression Primary Impression: Right ureteral stone Disposition: HOME, SELF-CARE Condition: Stable Departure-Patient Inst. Decision time for Depature: 22:21 Referrals: NO,LOCAL PHYSICIAN (PCP/Family) Primary Care Physician Patient Instructions: Kidney Stones (DC) Scripts Hydrocodone/Acetaminophen (Hydrocodone-Acetamin 5-325 mg) 1 Each Tablet 1 TAB PO Q4H PRN for PAIN-MODERATE (5-7), #20 TAB Prov: SABA MATHEWS APRN 06/10/21 Cefuroxime Axetil (Cefuroxime) 250 Mg Tablet 250 MG PO BID, #10 TAB Prov: SABA MATHEWS APRN 06/10/21 Tamsulosin HCl (Flomax) 0.4 Mg Cap 0.4 MG PO DAILY, #14 CAP Prov: SABA MATHEWS APRN 06/10/21 Work/School Note: Work Release Form Date Seen in the Emergency Department: Jun 10, 2021 Return to Work: Jun 13, 2021 SABA MATHEWS APRN Jun 10, 2021 21:44
[2021-06-10 21:52] LABS: BASOPHILS # (AUTO) 0.1 10^3/uL (0.0-0.1); BASOPHILS % (AUTO) 1 % (0-10); EOSINOPHILS # (AUTO) 0.3 10^3/uL (0.0-0.3); EOSINOPHILS % (AUTO) 3 % (0-10); HEMATOCRIT 49 % (40-54); HEMOGLOBIN 16.2 g/dL (13.3-17.7); LYMPHOCYTES # (AUTO) 3.3 10^3/uL (1.0-4.0); LYMPHOCYTES % (AUTO) 28 % (12-44); MEAN CORPUSCULAR HEMOGLOBIN 33 pg (25-34); MEAN CORPUSCULAR HGB CONC 33 g/dL (32-36); MEAN CORPUSCULAR VOLUME 100 fL (80-99); MEAN PLATELET VOLUME 10.1 fL (9.0-12.2); MONOCYTES # (AUTO) 0.8 10^3/uL (0.0-1.0); MONOCYTES % (AUTO) 7 % (0-12); NEUTROPHILS # (AUTO) 7.1 10^3/uL (1.8-7.8); NEUTROPHILS % (AUTO) 62 % (42-75); PLATELET COUNT 327 10^3/uL (130-400); WHITE BLOOD COUNT 11.6 10^3/uL (4.3-11.0)
[2021-06-10 21:53] LABS: BILIRUBIN,URINE NEGATIVE (NEGATIVE); CLARITY,URINE CLEAR; COLOR,URINE YELLOW; GLUCOSE, URINE (UA) NEGATIVE (NEGATIVE); KETONES,URINE NEGATIVE (NEGATIVE); LEUKOCYTE ESTERASE ,URINE NEGATIVE (NEGATIVE); NITRITE,URINE NEGATIVE (NEGATIVE); PH,URINE 5.5 (5-9); PROTEIN,URINE NEGATIVE (NEGATIVE)
[2021-06-10 21:55] LABS: ALBUMIN 4.5 GM/DL (3.2-4.5); POTASSIUM 4.1 MMOL/L (3.6-5.0)
[2021-06-10 21:56] LABS: CALCIUM 9.5 MG/DL (8.5-10.1)
[2021-06-10 21:57] LABS: TOTAL PROTEIN 7.4 GM/DL (6.4-8.2)
[2021-06-10 21:59] LABS: BILIRUBIN,TOTAL 0.6 MG/DL (0.1-1.0)
[2021-06-10 22:01] LABS: CREATININE SERUM 1.53 MG/DL (0.60-1.30)
[2021-06-10 22:08] LABS: BACTERIA,URINE TRACE /HPF; WBC,URINE 0-2 /HPF
[2021-06-10 22:09] LABS: AMORPHOUS SEDIMENT,UR RARE AMOR URATES /LPF
[2021-06-10] MEDS ORDERED: fentaNYL INJ 100 MCG/2 ML AMP IVP ONE (22:15)
[2021-06-10] MEDS ORDERED: TMSL.4C PO (23:07)
[2021-06-10] MEDS ORDERED: ACHD5005 PO (23:07)
[2021-06-10] MEDS ORDERED: CEFU250T80 PO (23:07)
[2021-06-10] MEDS ORDERED: TAMSULOSIN 0.4 MG (FLOMAX) CAP PO SCH (23:15)
--- NOTE | 2021-06-10 23:22 | Diagnostic Imaging Report ---
INDICATION: Right-sided flank pain Abdominal film obtained at 1107 p.m. There is no prior study for comparison. The abdominal bowel gas pattern appears unremarkable. There are no definitive calculi overlying the renal shadows. There are multiple pelvic calcifications which could be phleboliths or small stones. IMPRESSION: Unremarkable bowel gas pattern. There are pelvic calcifications present which may be phleboliths or small stones. Dictated by: Dictated on workstation # [id number]
--- NOTE | 2021-06-10 23:24 | Diagnostic Imaging Report ---
INDICATION: Right-sided flank pain TECHNIQUE: Multiple contiguous axial images were obtained through the abdomen and pelvis without the use of intravenous contrast. Auto Exposure Controls were utilized during the CT exam to meet ALARA standards for radiation dose reduction. There is no prior CT for comparison. The visualized portions of the lung bases are clear. There is no pleural fluid collections. There is no free intraperitoneal air. The liver shows diffuse low-density change compatible with fatty infiltration. No focal liver lesion seen without contrast. The gallbladder appears normal. Spleen, adrenals, and pancreas appear normal. The right kidney shows mild perinephric edema with a tiny intrarenal stone in the lower pole. There is moderate right hydronephrosis and hydroureter, down to the level of an oblong stone at the right UVJ which measured about 7 x 3 mm. The left kidney shows tiny intrarenal calculi in the lower pole. There is no left hydronephrosis or left ureteral stone. There is no retroperitoneal mass or adenopathy. There is no ascites or abnormal fluid collection. Visualized bowel loops, including the appendix, are unremarkable. There is no pelvic mass or free fluid. IMPRESSION: There is right hydronephrosis and hydroureter, down to the level of an oblong 7 x 3 mm stone at the right UVJ. There are small intrarenal calculi in both kidneys. There is fatty infiltration of the liver. Dictated by: Dictated on workstation # [id number]
[2021-06-10 23:50] VITALS: BP 172/90
== END 2021-06-10 23:50 | disposition home or self-care (01) ==
LOC: EDUNIT# 20:52 → ER 20:55
DX: N13.2 Hydronephrosis with renal and ureteral calculous obstruction (principal)
CPT/HCPCS: 36415; 74018; 74176; 80053; 81000; 85025

== ENCOUNTER 2022-05-29 08:18 | Emergency (ER) | payer OTHER ==
[~2022-05-29] VITALS: Ht 175.2 cm; Wt 90.7 kg
[~2022-05-29 08:18] MED LIST: ACHD5005 PO; CEFU250T80 PO; TMSL.4C PO
--- NOTE | 2022-05-29 08:31 | ED General ---
General Stated Complaint: CHILLS,HEARN,FEVER Source of Information: Patient Exam Limitations: No Limitations History of Present Illness Date Seen by Provider: May 29, 2022 Time Seen by Provider: 08:25 Initial Comments Patient is a 51-year-old male who presents to the emergency department today with a chief complaint of shaking chills, frontal and occipital headache, subjective fever and body aches woke him rather suddenly at around 1 AM this morning. Patient is COVID vaccinated with boosters. He has had COVID twice previously. No shortness of breath, productive cough. He has been a little nauseous this morning. No abdominal pain, problems with urination, diarrhea, black or bloody stools. He does endorse urinary frequency. No increased thirst. Takes medication for hypertension. He sees Dr. Burrell here in [facility]. All other review of systems reviewed and negative except as stated. Timing/Duration: 4-6 Hours Severity: Moderate Associated Systoms: Fever/Chills, Headaches, Malaise, Nausea/Vomiting Allergies and Home Medications Allergies Coded Allergies: No Known Drug Allergies (Unverified , 05/11/20) Patient Home Medication List Home Medication List Reviewed: Yes Cefuroxime Axetil (Cefuroxime) 250 Mg Tablet, 250 MG PO BID Prescribed by: SABA MATHEWS on 06/10/212306 Hydrocodone/Acetaminophen (Hydrocodone-Acetamin 5-325 mg) 1 Each Tablet, 1 TAB PO Q4H PRN for PAIN-MODERATE (5-7) Prescribed by: SABA MATHEWS on 06/10/212307 Tamsulosin HCl (Flomax) 0.4 Mg Cap, 0.4 MG PO DAILY Prescribed by: SABA MATHEWS on 06/10/212306 Review of Systems Review of Systems Constitutional: see HPI, chills, malaise EENTM: no symptoms reported Respiratory: no symptoms reported Cardiovascular: no symptoms reported Gastrointestinal: nausea Genitourinary: frequency Musculoskeletal: muscle cramps Skin: no symptoms reported Psychiatric/Neurological: Headache All Other Systems Reviewed Negative Unless Noted: Yes Past Aitbchl-Iweopo-Dblvuw Hx Immunizations Up To Date PED Vaccines UTD: No Seasonal Allergies Seasonal Allergies: Yes Past Medical History Surgeries: Yes Respiratory: Yes (COVID positive) Pneumonia Currently Using CPAP: No Currently Using BIPAP: No Cardiac: No Neurological: Yes Genitourinary: Yes Kidney Stones Gastrointestinal: No Musculoskeletal: No Endocrine: No HEENT: No Cancer: No Psychosocial: No Integumentary: No Blood Disorders: No Adverse Reaction/Blood Tranf: No Family Medical History Diabetes mellitus 19 FATHER Hypercholesterolemia 19 FATHER Hypertension 19 FATHER 19 MOTHER No Pertinent Family Hx Physical Exam Vital Signs Vital Signs - First Documented 05/29/22 08:26 Temp 37.4 Pulse 80 Resp 14 B/P (MAP) 171/83 (112) Pulse Ox 98 O2 Delivery Room Air Capillary Refill : Height, Weight, BMI Height: '" Weight: lbs. oz. kg; 32.17 BMI Method: General Appearance: No Apparent Distress, WD/WN Eyes: Bilateral Eye Normal Inspection, Bilateral Eye PERRL, Bilateral Eye EOMI HEENT: PERRL/EOMI, Pharynx Normal, Moist Mucous Membranes, Other (Small amount of fluid noted behind bilateral TMs, no distention or loss of landmarks) Neck: Full Range of Motion, Normal Inspection, Non Tender, Supple Respiratory: Lungs Clear, Normal Breath Sounds, No Accessory Muscle Use, No Respiratory Distress Cardiovascular: Regular Rate, Rhythm, Normal Peripheral Pulses Gastrointestinal: Non Tender, Soft Extremity: Normal Capillary Refill, Normal Inspection, Normal Range of Motion, Non Tender, No Calf Tenderness, No Pedal Edema Neurologic/Psychiatric: Alert, Oriented x3, No Motor/Sensory Deficits, Normal Mood/Affect, postal delivery officer II-XII Norm as Tested Skin: Normal Color, Warm/Dry Progress/Results/Core Measures Suspected Sepsis SIRS Temperature: Pulse: Respiratory Rate: Blood Pressure / Mean: Results/Orders Lab Results Laboratory Tests Test 05/29/22 08:32 05/29/22 08:42 Range/Units SARS-CoV-2 RNA (RT-PCR) Not Detected Not Detecte Glucometer 119 H 70-110 MG/DL My Orders Orders - JESSICA MENCHACA MD Accucheck Stat ONCE (05/29/22 08:34) Covid 19 Inhouse Test (05/29/22 08:34) Isolation Central Supply Req (05/29/22 08:34) Vital Signs/I&O 05/29/22 08:26 Temp 37.4 Pulse 80 Resp 14 B/P (MAP) 171/83 (112) Pulse Ox 98 O2 Delivery Room Air Capillary Refill : Progress Note : Time: 09:19 Progress Note Patient's COVID test is negative today. I did recommend that he retest in the next 24 hours especially if his symptoms are worsening, persisting, any other concerns. I recommended oyxu-goz-daatksv Aleve for his headache. Encouraged hydration. He is comfortable with plan of care. All questions are sought and answered. Departure Impression Primary Impression: Viral syndrome Additional Impression: Headache Qualified Codes: R51.9 - Headache, unspecified Disposition: 01 HOME, SELF-CARE Condition: Stable Departure-Patient Inst. Decision time for Depature: 09:20 Referrals: NO,LOCAL PHYSICIAN (PCP) Primary Care Physician AYSE BURRELL DO Patient Instructions: Headache, Adult (DC) Add. Discharge Instructions: Drink plenty of fluids to stay well-hydrated. Take mmqh-eiw-jppykjv Aleve, the prescription strength is 2 tablets twice daily with food as needed for headache. Do not take this medication for any longer than 5 days in a row. Return to the emergency department for any new, concerning or emergent complaints. I would recommend that you retest for COVID in 24 hours. Copy Copies To 1: AYSE BURRELL KATHRYN M MD May 29, 2022 08:31
[2022-05-29 09:28] VITALS: BP 127/89
[2022-05-29] MEDS ORDERED: NAPROXEN 250 MG (NAPROSYN) TABLET PO ONE (09:30)
== END 2022-05-29 09:28 | disposition home or self-care (01) ==
LOC: EDUNIT# 08:18 → ER 08:19
DX: B34.9 Viral infection, unspecified (principal); I10 Essential (primary) hypertension; Z20.822 Contact with and (suspected) exposure to COVID-19; Z79.899 Other long term (current) drug therapy
CPT/HCPCS: 82947; 87636

== ENCOUNTER 2022-05-30 07:18 | Emergency (ER) | payer OTHER ==
[~2022-05-30] VITALS: Ht 175.3 cm; Wt 90.7 kg
[2022-05-30] MEDS ORDERED: KETOROLAC 30 MG/ML VIAL IVP ONE (07:45)
[2022-05-30] MEDS ORDERED: NS IV 1000 ML 1,000 ML IV SCH ×2 (07:45→08:45)
[2022-05-30] MEDS ORDERED: ONDANSETRON 4 MG/2 ML (SDV) Z0FRAN IVP ONE (07:45)
--- NOTE | 2022-05-30 07:47 | ED General ---
General Chief Complaint: COVID19 Suspect/Confirmed Stated Complaint: DEHYDRATION SEEN 05/29 Nursing Triage Note: PT AMBULATE TO ROOM 06 WITHOUT DIFFICULTY WITH C/O LOWER BACK PAIN, DEHYDRATION, DARK COLORED URINE, AND FEVER. PT REPORTS SEEN IN THIS ED FOR SAME C/O YESTERDAY. PT STATES HE DOES NOT FEEL BETTER. PT REPORTS FEVER OF 100 AT HOME. PT AFEBRILE UPON ARRIVAL. Source of Information: Patient Exam Limitations: No Limitations History of Present Illness Date Seen by Provider: May 30, 2022 Time Seen by Provider: 07:37 Initial Comments Patient is a 51-year-old male who presents to the emergency department today with a chief complaint of low back ache, urine that "looks like a vasile", a little dysuria, body aches nausea, fever to 101 at home, slightly congested, mild nonproductive cough. He is COVID vaccinated. I saw him in the emergency department yesterday morning with similar symptoms that started in the middle of the night around 1 AM the preceding night. He states that his symptoms have persisted. He last took naproxen last night, nothing this morning. He states the naproxen helps. I had recommended that he retest for COVID in 24 hours, he has not done this. Nauseous without vomiting. 1 loose stool in the last 24 hours. Not diabetic. Medications for hypertension. He states he has been trying to drink water but has a bottle of tea at the bedside. All other review of systems reviewed and negative except as stated. Timing/Duration: Other (36hours) Severity: Moderate Associated Systoms: Cough, Fever/Chills, Headaches, Malaise, Nausea/Vomiting Allergies and Home Medications Allergies Coded Allergies: No Known Drug Allergies (Unverified , 05/11/20) Patient Home Medication List Home Medication List Reviewed: Yes Cefuroxime Axetil (Cefuroxime) 250 Mg Tablet, 250 MG PO BID Prescribed by: SABA MATHEWS on 06/10/212306 Hydrocodone/Acetaminophen (Hydrocodone-Acetamin 5-325 mg) 1 Each Tablet, 1 TAB PO Q4H PRN for PAIN-MODERATE (5-7) Prescribed by: SABA MATHEWS on 06/10/212307 Tamsulosin HCl (Flomax) 0.4 Mg Cap, 0.4 MG PO DAILY Prescribed by: SABA MATHEWS on 06/10/212306 Review of Systems Review of Systems Constitutional: see HPI EENTM: no symptoms reported Respiratory: cough Cardiovascular: no symptoms reported Gastrointestinal: abdominal pain, nausea Genitourinary: dysuria Musculoskeletal: back pain Skin: no symptoms reported Psychiatric/Neurological: Headache All Other Systems Reviewed Negative Unless Noted: Yes Past Myztfpz-Uhonxy-Nsafje Hx Patient Social History Tobacco Use?: No Smoking Status: Never a Smoker Smokeless Tobacco Frequency: Current Everyday User, Heavy User Use of E-Cig and/or Vaping dev: No Use of E-Cig and/or Vaping Hao: Never a User Substance use?: No Alcohol Use?: No Pt feels they are or have been: No Immunizations Up To Date PED Vaccines UTD: No First/Initial COVID19 Vaccinat: 2020 Second COVID19 Vaccination David: 2020 COVID19 Vaccine [employer] Manager: [employer] Seasonal Allergies Seasonal Allergies: Yes Past Medical History Surgery/Hospitalization HX: HTN Surgeries: Yes Respiratory: Yes (COVID positive) Pneumonia Currently Using CPAP: No Currently Using BIPAP: No Cardiac: No Neurological: Yes Genitourinary: Yes Kidney Stones Gastrointestinal: No Musculoskeletal: No Endocrine: No HEENT: No Cancer: No Psychosocial: No Integumentary: No Blood Disorders: No Adverse Reaction/Blood Tranf: No Family Medical History Diabetes mellitus 19 FATHER Hypercholesterolemia 19 FATHER Hypertension 19 FATHER 19 MOTHER No Pertinent Family Hx Physical Exam Vital Signs Vital Signs - First Documented 05/30/22 07:23 Temp 36.8 Pulse 72 Resp 17 B/P (MAP) 116/77 (90) O2 Delivery Room Air Capillary Refill : Less Than 3 Seconds Height, Weight, BMI Height: '" Weight: lbs. oz. kg; 29.00 BMI Method: General Appearance: No Apparent Distress, WD/WN Eyes: Bilateral Eye Normal Inspection, Bilateral Eye PERRL, Bilateral Eye EOMI HEENT: PERRL/EOMI, TMs Normal, Normal ENT Inspection, Pharynx Normal, Moist Mucous Membranes Neck: Full Range of Motion, Non Tender, Supple Respiratory: Lungs Clear (95-99%), Normal Breath Sounds, No Accessory Muscle Use, No Respiratory Distress Cardiovascular: Regular Rate, Rhythm (70's), Normal Peripheral Pulses Gastrointestinal: Normal Bowel Sounds, Soft, Tenderness (diffuse mild tenderness) Extremity: Normal Capillary Refill, Normal Inspection, Normal Range of Motion, Non Tender, No Pedal Edema Neurologic/Psychiatric: Alert, Oriented x3, No Motor/Sensory Deficits, Normal Mood/Affect Skin: Normal Color, Warm/Dry Progress/Results/Core Measures Suspected Sepsis SIRS Temperature: Pulse: 72 Respiratory Rate: 17 Blood Pressure 116 /77 Mean: 90 Laboratory Tests 05/30/22 07:50: Creatinine 1.51H Results/Orders Lab Results Laboratory Tests Test 05/30/22 07:30 05/30/22 07:50 Range/Units Urine Color YELLOW Urine Clarity CLEAR Urine pH 6.0 5-9 Urine Specific [place] >=1.030 1.016-1.022 Urine Protein 2+ H NEGATIVE Urine Glucose (UA) TRACE H NEGATIVE Urine Ketones 1+ H NEGATIVE Urine Nitrite NEGATIVE NEGATIVE Urine Bilirubin 1+ H NEGATIVE Urine Urobilinogen 1.0 < = 1.0 MG/DL Urine Leukocyte Esterase NEGATIVE NEGATIVE Urine RBC (Auto) NEGATIVE NEGATIVE Urine RBC NONE /HPF Urine WBC 0-2 /HPF Urine Squamous Epithelial Cells 0-2 /HPF Urine Crystals PRESENT H /LPF Urine Amorphous Sediment LARGE STANLEY URATES H /LPF Urine Bacteria NEGATIVE /HPF Urine Casts PRESENT /LPF Urine Hyaline Casts 0-2 H /LPF Urine Granular Casts 0-2 H /LPF Urine Mucus LARGE H /LPF Urine Culture Indicated NO Sodium Level 138 135-145 MMOL/L Potassium Level 3.7 3.6-5.0 MMOL/L Chloride Level 103 98-107 MMOL/L Carbon Dioxide Level 23 21-32 MMOL/L Anion Gap 12 5-14 MMOL/L Blood Urea Nitrogen 11 7-18 MG/DL Creatinine 1.51 H 0.60-1.30 MG/DL Estimat Glomerular Filtration Rate 55 BUN/Creatinine Ratio 7 Glucose Level 175 H 70-105 MG/DL Calcium Level 8.5 8.5-10.1 MG/DL SARS-CoV-2 RNA (RT-PCR) Not Detected Not Detecte My Orders Orders - JESSICA MENCHACA MD Basic Metabolic Panel (05/30/22 07:42) Covid 19 Inhouse Test (05/30/22 07:42) Ua Culture If Indicated (05/30/22 07:42) Isolation Central Supply Req (05/30/22 07:42) Ed Iv/Invasive Line Start (05/30/22 07:42) Ns Iv 1000 Ml (Sodium Chloride 0.9%) (05/30/22 07:45) Ketorolac Injection (Toradol Injection) (05/30/22 07:45) Ondansetron Injection (Zofran Injectio (05/30/22 07:45) Ns Iv 1000 Ml (Sodium Chloride 0.9%) (05/30/22 08:45) Medications Given in ED Current Medications Medications Dose Ordered Sig/Basilia Route Start Time Stop Time Status Last Admin Dose Admin Ketorolac Tromethamine 15 mg ONCE ONCE IVP 05/30/22 07:45 05/30/22 07:46 DC 05/30/22 07:55 15 MG Ondansetron HCl 4 mg ONCE ONCE IVP 05/30/22 07:45 05/30/22 07:46 DC 05/30/22 07:55 4 MG Vital Signs/I&O 05/30/22 07:23 Temp 36.8 Pulse 72 Resp 17 B/P (MAP) 116/77 (90) O2 Delivery Room Air Capillary Refill : Less Than 3 Seconds Blood Pressure Mean: 90 Progress Note : Time: 09:11 Progress Note Patient feels a little bit better after first liter of IV fluids and Toradol. He is sitting comfortably at the bedside. Vital signs are stable. COVID test is negative. He has a slight bump in his creatinine which is fairly similar to labs visible in the computer system from a year ago. He does have quite concentrated urine. I encouraged him to push fluids. I advised that I believe he has a viral syndrome and that he should improve over the course of the next 2 to 3 days. Return precautions are provided. He verbalized understanding. All questions are sought and answered. Departure Impression Primary Impression: Viral syndrome Additional Impression: Dehydration Disposition: 01 HOME, SELF-CARE Condition: Improved Departure-Patient Inst. Decision time for Depature: 08:35 Referrals: AYSE BURRELL DO (PCP/Family) Primary Care Physician Patient Instructions: Viral Syndrome (DC), Dehydration, Adult (DC) Add. Discharge Instructions: Continue to push water to stay well-hydrated. Avoid caffeinated beverages as these act as diuretics and will cause you to urinate more fluid than you keep in. Continue the Aleve or naproxen 500 mg twice daily with food for body aches and pains. Follow-up with Dr. Burrell next week. Return to the emergency department for any new, concerning or emergent complaints. Copy Copies To 1: AYSE BURRELL KATHRYN M MD May 30, 2022 07:47
[2022-05-30 07:49] LABS: BILIRUBIN,URINE 1+ (NEGATIVE); CLARITY,URINE CLEAR; COLOR,URINE YELLOW; GLUCOSE, URINE (UA) TRACE (NEGATIVE); KETONES,URINE 1+ (NEGATIVE); LEUKOCYTE ESTERASE ,URINE NEGATIVE (NEGATIVE); NITRITE,URINE NEGATIVE (NEGATIVE); PROTEIN,URINE 2+ (NEGATIVE)
[2022-05-30 08:04] LABS: AMORPHOUS SEDIMENT,UR LARGE AMOR URATES /LPF; BACTERIA,URINE NEGATIVE /HPF; GRANULAR CASTS,URINE 0-2 /LPF; HYALINE CASTS, URINE 0-2 /LPF; SQUAMOUS EPITHELIAL CELL,UR 0-2 /HPF; WBC,URINE 0-2 /HPF
[2022-05-30 08:15] LABS: CALCIUM 8.5 MG/DL (8.5-10.1); CREATININE SERUM 1.51 MG/DL (0.60-1.30); POTASSIUM 3.7 MMOL/L (3.6-5.0)
[2022-05-30 09:52] VITALS: BP 134/75
== END 2022-05-30 09:52 | disposition home or self-care (01) ==
LOC: EDUNIT# 07:18 → ER 07:20
DX: B34.9 Viral infection, unspecified (principal); E86.0 Dehydration; F17.200 Nicotine dependence, unspecified, uncomplicated; Z86.16 Personal history of COVID-19; Z20.822 Contact with and (suspected) exposure to COVID-19
CPT/HCPCS: 36415; 80048; 81000; 87636

== ENCOUNTER → 2022-05-31 | Outpatient (CLI) | payer OTHER ==
[~2022-05-31] VITALS: Ht 175.3 cm; Wt 90.7 kg
[~2022-05-31] MED LIST changes: +KETOROLAC 30 MG/ML VIAL IV PRN; +KETOROLAC 30 MG/ML VIAL ONE; +LACTATED RINGERS 2,000 ML IV ONE; +LACTATED RINGERS 2,000 ML IV SCH; +ONDANSETRON 4 MG/2 ML (SDV) Z0FRAN IV PRN; +ONDANSETRON 4 MG/2 ML (SDV) Z0FRAN ONE
[2022-05-31 12:20] VITALS: BP 112/70
== END ==
LOC: SDC 12:21
PROVIDERS: ATTEND Nurse Practitioner Family
DX: E86.0 Dehydration (principal); R50.9 Fever, unspecified; R11.0 Nausea; R68.83 Chills (without fever); W57.XXXA Bitten or stung by nonvenomous insect and other nonvenomous arthropods, initial encounter
CPT/HCPCS: 96360; 96361; 96374; 96375

== ENCOUNTER 2023-05-15 05:36 | Outpatient (CLI) | payer OTHER ==
[~2023-05-15] VITALS: Ht 172.7 cm; Wt 94.1 kg
[~2023-05-15 05:36] MED LIST changes: -KETOROLAC 30 MG/ML VIAL IV PRN; -KETOROLAC 30 MG/ML VIAL ONE; -LACTATED RINGERS 2,000 ML IV ONE; -LACTATED RINGERS 2,000 ML IV SCH; -ONDANSETRON 4 MG/2 ML (SDV) Z0FRAN IV PRN; -ONDANSETRON 4 MG/2 ML (SDV) Z0FRAN ONE
[2023-05-15] MEDS ORDERED: LOSA50TA63 PO (15:12)
[2023-05-15] MEDS ORDERED: LEVO25CA4 PO (15:12)
== END 2023-05-15 15:31 ==
LOC: PREOP 05:36
PROVIDERS: ATTEND Surgery
DX: Z01.818 Encounter for other preprocedural examination (principal)

== ENCOUNTER 2023-05-22 08:35 | Day surgery (SDC) | payer OTHER ==
[2023-05-22] VITALS (10 sets, daily range): BP systolic 131–153; BP diastolic 71–91
[~2023-05-22] VITALS: Ht 172 cm; Wt 94.1 kg
[~2023-05-22 08:35] MED LIST changes: +LEVO25CA4 PO; +LOSA50TA63 PO
[2023-05-22] MEDS ORDERED: ceFAZolin INJECTION 2,000 MG ONE (09:11)
[2023-05-22] MEDS ORDERED: NS (IVPB) 50 ML 50 ML ONE (09:11)
[2023-05-22] MEDS ORDERED: ceFAZolin INJECTION 2,000 MG in NS (IVPB) 50 ML 50 ML IV ONE (09:15)
[2023-05-22] MEDS: LACTATED RINGERS 1,000 ML IV PRN ×2 (09:31→12:20)
[2023-05-22] MEDS ORDERED: LIDOCAINE 1% w/EPI 1:100,000 20 ML VIAL ONE (10:38)
--- NOTE | 2023-05-22 11:07 | Progress Note-Pre Operative ---
Pre-Operative Progress Note Date H&P Reviewed: May 22, 2023 Time H&P Reviewed: 11:06 History & Physical: H&P Reviewed, Patient Examed, No changes noted Pre-Operative Diagnosis: NECK MASS LEONARD GARZA DO May 22, 2023 11:07
[2023-05-22] MEDS ORDERED: fentaNYL INJECTION 100 MCG/2 ML VIAL ONE (11:38)
[2023-05-22] MEDS ORDERED: MIDAZOLAM 2 MG/2 ML (VERSED) VIAL ONE (11:39)
[2023-05-22] MEDS ORDERED: LIDOCAINE PF 2% 5 ML VIAL ONE (12:18)
[2023-05-22] MEDS ORDERED: SEVOFLURANE (ULTANE) 15 ML INHAL SOLN ONE (12:18)
[2023-05-22] MEDS ORDERED: ONDANSETRON 4 MG/2 ML (SDV) Z0FRAN ONE (12:18)
[2023-05-22] MEDS ORDERED: ROCURONIUM 50 MG/5 ML (ZEMURON) VIAL IV ONE (12:18)
[2023-05-22] MEDS ORDERED: proPOfol 200 MG/20 ML (DIPRIVAN) VIAL IV ONE (12:18)
[2023-05-22] MEDS ORDERED: dexAMETHasone INJ 10 MG/ML 1 ML VIAL ONE (12:19)
[2023-05-22] MEDS ORDERED: NEOSTIGMINE (BLOXIVERZ ) 1 MG/1ML 10 ML VIAL ONE (12:22)
[2023-05-22] MEDS ORDERED: GLYCOPYRROLATE INJ 0.2 MG/ML 2 ML VIAL ONE (12:22)
--- NOTE | 2023-05-22 12:28 | Progress Note-Post Operative ---
Post-Operative Progess Note Surgeon (s)/Supervising Bailiff (s) Surgeon LEONARD GARZA DO Supervising Bailiff: na Pre-Operative Diagnosis NECK MASS Post-Operative Diagnosis same Procedure & Operative Findings Date of Procedure 05/22/23 Procedure Performed/Findings excison of neck mas Anesthesia Type general Estimated Blood Loss Estimated blood loss (mL): minimal Specimens/Packing Specimens Removed neck mass LEONARD GARZA DO May 22, 2023 12:28
[2023-05-22] MEDS ORDERED: TRM50T PO (12:29)
--- NOTE | 2023-05-22 12:33 | Discharge Inst-Simple/Standard ---
Discharge Inst-Standard Discharge Medications New, Converted or Re-Newed RX: Transmitted to Pharmacy Patient Instructions/Follow Up Plan of Care/Instructions/FU: 12-14 days Karsten Activity as Tolerated: Yes (no strenuous.) Discharge Diet: Regular Diet Other Inst to Patient Follow up Appt: Make appointment for 12-14 days. Instructions: No lifting greater than 10 pounds. No strenuous activity. May shower in 24 hours, no tub bath or soaking. Use incentive spirometer at home as directed. No Smoking Skin/Wound Care: Keep area clean and dry. Change bandage daily and as needed. After after 24 hours may leave open unless may may get dirty. Symptoms to Report: Appetite Changes, Extremity Discoloration, Numbness/Tingling, Swelling Increased, Bleeding Excessive, Eyesight Changes, Pain Increased, Urine Color Change, Constipation(Persistent), Fever over 101 degree F, Pain/Pressure in chest, Urinating Difficulty, Cough Up/Vomit Blood, Heart Beat Irreg/Pounding, Pain/Pressure in jaw, Vaginal Bleeding Increase, Cramps in feet or legs, Lightheadedness, Pain/Pressure in shoulder, Diarrhea(Persistent), Memory Changes Suddenly, Questions/Concerns, Weight gain consecutive days, Dizziness/Fainting, Nausea/Vomiting, Shortness of Breath, Weight gain over 2 pounds If questions or concerns contact your physician Or seek help at emergency department. LEONARD GARZA DO May 22, 2023 12:33
--- NOTE | 2023-05-22 12:50 | Anesthesia-General Post-Op ---
General Patient Condition Mental Status/LOC: Same as Preop Cardiovascular: Satisfactory Nausea/Vomiting: Absent Respiratory: Satisfactory Pain: Controlled Complications: Absent Post Op Complications Complications None Follow Up Care/Instructions Patient Instructions None needed. Anesthesia/Patient Condition Patient Condition Patient is doing well, no complaints, stable vital signs, no apparent adverse anesthesia problems. No complications reported per nursing. CARMINE RIGGS CRNA May 22, 2023 12:50
[2023-05-22] MEDS ORDERED: HYDROmorphone INJECTION 2 MG/ML VIAL IV ONE (13:00)
[2023-05-22] MEDS ORDERED: fentaNYL INJECTION 100 MCG/2 ML VIAL IVP ONE (13:00)
[2023-05-22] MEDS ORDERED: ONDANSETRON 4 MG/2 ML (SDV) Z0FRAN IVP PRN (13:00)
[2023-05-22] MEDS ORDERED: morphine INJ 10 MG/ML 1ML (SYR OR VIAL) IVP ONE (13:00)
--- NOTE | 2023-05-22 18:24 | OPERATIVE REPORT ---
DATE OF SERVICE: 05/22/2023 PREOPERATIVE DIAGNOSIS: Neck mass. POSTOPERATIVE DIAGNOSIS: Neck mass. PROCEDURE: Excision of neck mass, 5 x 3.5 x 2 cm. SURGEON: Leonard Shelley DO ANESTHESIA: General. ESTIMATED BLOOD LOSS: Minimal. COMPLICATIONS: None. INDICATIONS: The patient is a 52-year-old male with a neck mass. He wishes to have removed. He understands risks and benefits and wishes to proceed. Consent was signed in chart. DESCRIPTION OF PROCEDURE: The patient was taken to the operating suite where he was placed in right lateral recumbent position. Timeout was performed. Local anesthetic was infiltrated around the mass, which was on the posterior neck. A #15 blade scalpel was used to make a skin incision over the mass. Cautery was used to dissect down to the mass which encountered hard fatty tissue. This was then dissected around until removed. Hemostasis was achieved. Overall, dimensions of the mass was 5 x 3.5 x 2 cm. Hemostasis was achieved. The skin was then closed using 2-0 nylon in simple interrupted fashions. The area was washed and dried and sterile bandage was applied. The patient tolerated the procedure well without any complications, taken to recovery room in stable condition. Job ID: [id number] DocumentID: [id number] Dictated Date: 05/22/2023 13:38:02 Fence Installer Helper Date: 05/22/2023 18:22:00 Dictated By: LEONARD SHELLEY DO
== END 2023-05-22 14:17 | disposition home or self-care (01) ==
LOC: SDC 08:35
PROVIDERS: ATTEND Surgery
DX: D17.0 Benign lipomatous neoplasm of skin and subcutaneous tissue of head, face and neck (principal)
CPT/HCPCS: 87081